=== PATIENT | female | born 1945 | race Caucasian/White ===

== ENCOUNTER 2019-07-30 18:15 | Emergency (ER) | payer OTHER, BC ==
[~2019-07-30] VITALS: Ht 154.9 cm; Wt 62.6 kg
[2019-07-30 18:24] VITALS: Ht 154.9 cm; Wt 62.6 kg
[2019-07-30 20:11] VITALS: BP 145/86
== END 2019-07-30 20:11 | disposition home or self-care (01) ==
LOC: ED 18:15
DX: S00.03XA Contusion of scalp, initial encounter (principal); E11.9 Type 2 diabetes mellitus without complications; V49.9XXA Car occupant (driver) (passenger) injured in unspecified traffic accident, initial encounter; Y93.I9 Activity, other involving external motion; Y92.413 State road as the place of occurrence of the external cause; Y99.8 Other external cause status